=== PATIENT | male | born 2000 | race Caucasian/White ===

== ENCOUNTER 2024-04-03 16:18 | Emergency (ER) | payer BC, SELFPAY ==
[2024-04-03] MEDS ORDERED: ACETAMINOPHEN 500 MG TAB ONE (17:06)
[2024-04-03 17:40] LABS: Absolute Basophils 0.1 K/uL (0-0.5); Absolute Eosinophils 0.1 K/uL (0-0.5); Absolute Lymphocytes (CBC) 1.7 K/uL (0.7-4.9); Absolute Monocytes 0.6 K/uL (0.1-1.3); Absolute Neutrophil 5.3 K/uL (1.8-8.0); Basophils % 0.8 % (0-1.3); Eosinophils % 0.8 % (0-4.4); Hematocrit 44.3 % (39.6-49.0); Hemoglobin 14.8 g/dL (13.6-17.9); Lymphocytes % 22.3 % (15.3-44.8); MCH 28.4 pg (27.0-35.0); MCHC 33.4 g/dL (32.0-36.0); MCV 85.2 fL (80-100); MPV 8.8 fL (7.6-11.3); Monocytes % 7.5 % (3.3-12.3); Neutrophils % 68.6 % (41.7-73.7); Platelets 255 thou/uL (152-406); Red Cell Distribution Width 13.1 % (12.1-15.2)
[2024-04-03 18:03] LABS: ALT/SGPT 27 U/L (16-61); AST/SGOT 13 U/L (15-37); Albumin 3.5 g/dL (3.4-5.0); Albumin/Globulin Ratio 1.1 (1.1-1.8); Alkaline Phosphatase 90 U/L (45-117); Anion Gap 5.3 mEq/L (5.0-15.0); BUN Blood Urea Nitrogen 15 mg/dL (7-18); Bicarbonate 27 mEq/L (21-32); Bilirubin Direct < 0.2 mg/dL (0-0.2); Bilirubin Indirect, Calculated 0.3 mg/dL (0.2-0.8); Bilirubin Total 0.5 mg/dL (0.2-1.0); Globulin 3.2 g/dL (2.3-3.5); Glomerular Filtration Rate 70 ml/min (=/>90); Glucose Level 120 mg/dL (74-106); Magnesium 2.1 mg/dL (1.6-2.4); Potassium 3.3 mEq/L (3.5-5.1); Protein, Total 6.7 g/dL (6.4-8.2); Sodium Level 141 mEq/L (136-145); Troponin High Sensitivity 4.2 pg/mL (<58.9)
[2024-04-03] MEDS ORDERED: NA CHLORIDE 0.9% 1,000 ML ONE (18:22)
--- NOTE | 2024-04-03 18:33 | ER ---
Nurse's Notes [facility] Name: Dre Obregon Age: 23 yrs Sex: Male : 2000 Arrival Date: 04/03/2024 Time: 16:18 Bed 19 Private MD: Diagnosis: Syncope Presentation: 04/03 16:25 Chief complaint: EMS states: toned out for unconscious male. Reports dizziness and LIU me1 prior to losing consciousness. Potential "out" for up to 15 mins. On EMS arrival patient was alert and confused but is A\\T\\Ox4 at this time. c/o slight frontal headache at this time. Coronavirus screen: Vaccine status: Patient reports receiving the 2nd dose of the covid vaccine. Ebola Screen: No symptoms or risks identified at this time. Initial Sepsis Screen: Does the patient meet any 2 criteria? No. Patient's initial sepsis screen is negative. Does the patient have a suspected source of infection? No. Patient's initial sepsis screen is negative. Risk Assessment: Do you want to hurt yourself or someone else? Patient reports no desire to harm self or others. Onset of symptoms was April 03, 2024. 16:25 Method Of Arrival: EMS: [facility] me1 16:25 Acuity: SALTY 3 me1 Triage Assessment: 16:27 General: Appears comfortable, well groomed, well developed, well nourished, Behavior is me1 calm, cooperative, appropriate for age. Pain: Complains of pain in head Pain does not radiate. Pain currently is 2 out of 10 on a pain scale. Quality of pain is described as aching, Pain began gradually, Is continuous. EENT: No signs and/or symptoms were reported regarding the EENT system. Neuro: Level of Consciousness is awake, alert, obeys commands, Oriented to person, place, time, situation, Appropriate for age. Cardiovascular: Patient's skin is warm and dry. Respiratory: Airway is patent Trachea midline Respiratory effort is even, unlabored, Respiratory pattern is regular, symmetrical. GI: No signs and/or symptoms were reported involving the gastrointestinal system. : No signs and/or symptoms were reported regarding the genitourinary system. Derm: Skin is intact, is healthy with good turgor, Skin is pink, warm \\T\\ dry. Musculoskeletal: No signs and/or symptoms reported regarding the musculoskeletal system. Historical: - Allergies: 16:27 Azithromycin; me1 - PMHx: 16:27 hyponatremia; me1 - PSHx: 16:27 None; me1 - Immunization history:: Adult Immunizations up to date. - Infectious Disease History:: Denies. - Social history:: Smoking status: Reported history of juuling and/or vaping. Screenin:29 [facility] ED Fall Risk Assessment (Adult) History of falling in the last 3 months, me1 including since admission Yes- physiologic fall (2 pts) Confusion or Disorientation No (0 pts) Intoxicated or Sedated No (0 pts) Impaired Gait No (0 pts) Mobility Assist Device Used No (0 pt) Altered Elimination No (0 pt) Score/Fall Risk Level 0 - 2 = Low Risk Maintained a safe environment, Provided non-skid footwear, Hourly rounding (assess needs \\T\\ fall precautionary measures) done. Abuse screen: Denies threats or abuse. Nutritional screening: No deficits noted. Tuberculosis screening: No symptoms or risk factors identified. Assessment: 16:29 General: See triage assessment. . me1 19:02 Reassessment: Dispo pending. Finishing IV fluids. cp4 Vital Signs: 16:25 BP 128 / 72; Pulse 81; Resp 16; Temp 98; Pulse Ox 91% on R/A; Weight 92.08 kg; Height 6 me1 ft. 0 in. ; Pain 2/10; 16:30 BP 140 / 66; Pulse 83; Resp 16; Pulse Ox 94% on R/A; me1 17:30 BP 136 / 58; Pulse 76; Resp 17; Pulse Ox 98% on R/A; me1 18:45 BP 139 / 68; Pulse 65; Resp 16; Pulse Ox 100% ; me1 19:56 BP 137 / 66; Pulse 59; Resp 18; Temp 98; Pulse Ox 100% ; cp4 16:25 Body Mass Index 27.53 (92.08 kg, 182.88 cm) me1 16:25 Pain Scale: Adult or1 ED Course: 16:24 Patient arrived in ED. sb4 16:24 [facility] Fern[facility] sb4 16:24 Alexandre Santamaria MD is Attending Physician. sb4 16:25 Andree Flynn RN is Primary Nurse. me1 16:27 Triage completed. me1 16:27 Arm band placed on Patient placed in an exam room. me1 16:29 Patient has correct armband on for positive identification. Bed in low position. Call or1 light in reach. Side rails up X2. Provided Education on: POC. Verbalized understanding. . Client placed on continuous cardiac and pulse oximetry monitoring. NIBP monitoring applied. culinary art teacher on. Pulse ox on. NIBP on. 16:29 No provider procedures requiring assistance completed. me1 16:31 Maintain EMS IV. Dressing intact. Good blood return noted. Site clean \\T\\ dry. Gauge \\T\\ me 1 site: 20g LFA. Flushed with 10 mL NS. 17:02 Basic Metabolic Panel Sent. me1 17:02 CBC with Diff Sent. me1 17:02 Hepatic Function Sent. me1 17:02 Magnesium Sent. me1 17:02 Troponin High Sensitivity Sent. me1 17:02 Initial lab(s) drawn, by or, sent to lab. me1 17:52 EKG done, by ED staff, reviewed by Catina Fernandez PA-C. me1 19:56 intact, bleeding controlled, No redness/swelling at site. Pressure dressing applied. cp4 Administered Medications: 17:10 Drug: Acetaminophen PO 1000 mg PO once Route: PO; me1 17:52 Follow up: Response: No adverse reaction; Pain is decreased me1 18:25 Drug: NS 0.9% IV 1000 ml IV at 1 bolus Per protocol; 1000 mL bolus Route: IV; Rate: 1 me1 bolus; Site: left forearm; 19:54 Follow up: Response: No adverse reaction; IV Status: Completed infusion; IV Intake: cp4 1000ml Medication: 16:29 VIS not applicable for this client. me1 Intake: 19:54 IV: 1000ml; Total: 1000ml. cp4 Outcome: 18:33 Discharge ordered by MD. sb4 19:56 Discharged to home ambulatory, cp4 19:56 Condition: stable 19:56 Discharge instructions given to patient, Instructed on discharge instructions, follow up and referral plans. Demonstrated understanding of instructions, follow-up care, 19:57 Patient left the ED. cp4 Signatures: Catina Fernandez PA-C PA-C sb4 Andree Flynn, RN RN or1 Yanet Saunders cp4
--- NOTE | 2024-04-03 18:33 | EDPHYS ---
Physician Documentation [facility] Name: Dre Obregon Age: 23 yrs Sex: Male : 2000 Arrival Date: 04/03/2024 Time: 16:18 Bed 19 Private MD: ED Physician Alexandre Santamaria HPI: 04/03 16:57 This 23 yrs old Male presents to ER via EMS with complaints of syncope. sb4 17:25 patient states that he was working outside today when he started to feel lightheaded. sb4 he took a break inside, felt better, then went back outside. states that he called for help and then the next thing he knew he was being carried inside. he states he has had syncopal episodes in the past, does have a history of hyponatremia, cause unclear. currently, he only reports headache. denies any chest pain, shortness of breath, dizziness, fever, chills, nausea, vomiting. Historical: - Allergies: 16:27 Azithromycin; me1 - PMHx: 16:27 hyponatremia; me1 - PSHx: 16:27 None; me1 - Immunization history:: Adult Immunizations up to date. - Infectious Disease History:: Denies. - Social history:: Smoking status: Reported history of juuling and/or vaping. ROS: 17:25 Constitutional: Negative for fever, chills, and weight loss, sb4 17:25 Neuro: Positive for syncope, 17:25 All other systems are negative, Exam: 17:25 Constitutional: This is a well developed, well nourished patient who is awake, alert, sb4 and in no acute distress. Head/Face: Normocephalic, atraumatic. Eyes: Extra-ocular motions intact. Periorbital areas with no swelling, redness, or edema. ENT: Mucous membranes moist. Cardiovascular: Regular rate and rhythm with a normal S1 and S2. Respiratory: Lungs have equal breath sounds bilaterally, clear to auscultation and percussion. No rales, rhonchi or wheezes noted. No increased work of breathing, no retractions or nasal flaring. Abdomen/GI: Soft, non-tender, no distension. Skin: Warm, dry with normal turgor. Normal color with no rashes, no lesions, and no evidence of cellulitis. MS/ Extremity: Pulses equal, no cyanosis. Neurovascular intact. Full, normal range of motion. Neuro: Awake and alert, GCS 15, oriented to person, place, time, and situation. Motor strength 5/5 in all extremities. Sensory grossly intact. Vital Signs: 16:25 BP 128 / 72; Pulse 81; Resp 16; Temp 98; Pulse Ox 91% on R/A; Weight 92.08 kg; Height 6 me1 ft. 0 in. ; Pain 2/10; 16:30 BP 140 / 66; Pulse 83; Resp 16; Pulse Ox 94% on R/A; me1 17:30 BP 136 / 58; Pulse 76; Resp 17; Pulse Ox 98% on R/A; me1 18:45 BP 139 / 68; Pulse 65; Resp 16; Pulse Ox 100% ; me1 19:56 BP 137 / 66; Pulse 59; Resp 18; Temp 98; Pulse Ox 100% ; cp4 16:25 Body Mass Index 27.53 (92.08 kg, 182.88 cm) me1 16:25 Pain Scale: Adult me1 MDM: 16:29 Patient medically screened. sb4 18:32 Data reviewed: vital signs, nurses notes, EMS record, lab test result(s), EKG, and as a sb4 result, I will discharge patient. Counseling: I had a detailed discussion with the patient and/or guardian regarding the historical points, exam findings, and any diagnostic results supporting the discharge/admit diagnosis, lab results, the need for outpatient follow up, for definitive care, to return to the emergency department if symptoms worsen or persist or if there are any questions or concerns that arise at home. 04/03 16:48 Order name: Basic Metabolic Panel; Complete Time: 18:07 sb4 04/03 16:48 Order name: CBC with Diff; Complete Time: 17:46 sb4 04/03 16:48 Order name: Hepatic Function; Complete Time: 18:07 sb4 04/03 16:48 Order name: Magnesium; Complete Time: 18:07 sb4 04/03 16:48 Order name: Troponin High Sensitivity; Complete Time: 18:07 sb4 04/03 16:48 Order name: Cardiac monitoring; Complete Time: 17:52 sb4 04/03 16:48 Order name: EKG - Nurse/Tech; Complete Time: 17:52 sb4 04/03 16:48 Order name: IV Saline Lock; Complete Time: 17:02 sb4 04/03 16:48 Order name: Labs collected and sent; Complete Time: 17:02 sb4 04/03 16:48 Order name: O2 Per Protocol; Complete Time: 17:02 sb4 04/03 16:48 Order name: O2 Sat Monitoring; Complete Time: 17:02 sb4 EC:31 Rate is 66 beats/min. Rhythm is regular, Normal Sinus Rhythm. [place] interval is normal at sb4 168 msec. QRS interval is normal at 98 msec. QT interval is normal at 380 msec. No Q waves. T waves are Normal. No ST changes noted. Clinical impression: Normal ECG and No evidence of ischemia. Interpreted by me. Reviewed by me. Administered Medications: 17:10 Drug: Acetaminophen PO 1000 mg PO once Route: PO; me1 17:52 Follow up: Response: No adverse reaction; Pain is decreased me1 18:25 Drug: NS 0.9% IV 1000 ml IV at 1 bolus Per protocol; 1000 mL bolus Route: IV; Rate: 1 me1 bolus; Site: left forearm; 19:54 Follow up: Response: No adverse reaction; IV Status: Completed infusion; IV Intake: cp4 1000ml Disposition Summary: 04/03/24 18:33 Discharge Ordered Notes: Location: Home sb4 Problem: new sb4 Symptoms: have improved sb4 Condition: Stable sb4 Diagnosis - Syncope sb4 Followup: sb4 - With: Private Physician - When: 1 week - Reason: Recheck today's complaints, Re-evaluation by your physician Discharge Instructions: - Discharge Summary Sheet sb4 - Syncope, [id number] sb4 Forms: - Patient Portal Instructions sb4 - Leadership Thank You Letter sb4 - Work release form cp4 Signatures: Dispatcher [employer] Catina Mcnally PA-C PA-C sb4 Andree Flynn RN RN me1 Yanet Saunders cp4 Corrections: (The following items were deleted from the chart) 16:48 16:48 BASIC METABOLIC PANEL+C.LAB.BRZ ordered. EDMS EDMS 16:48 16:48 CBC+H.LAB.BRZ ordered. EDMS EDMS 16:48 16:48 HEPATIC FUNCTION+C.LAB.BRZ ordered. EDMS EDMS 16:48 16:48 MAGNESIUM+C.LAB.BRZ ordered. EDMS EDMS 16:48 16:48 Troponin High Sensitivity+C.LAB.BRZ ordered. EDMS EDMS
[2024-04-03 20:14] VITALS: TEMP 98
[2024-04-03 20:19] VITALS: O2SAT 100
[2024-04-03 20:20] VITALS: BP 137/66
--- NOTE | 2024-04-05 13:50 | EKG ---
Test Date: 2024-04-03 Test Time: 17:29:10 Match Marker: MEASUREMENT RESULTS: Intervals: Rate: 66 DE: 168 QRSD: 98 QT: 380 QTc: 398 [place]: P: 69 DE: 168 QRS: 100 T: 53 INTERPRETIVE STATEMENTS: Normal sinus rhythm Normal ECG No previous ECG available for comparison Electronically Signed On 04-05-24 13:45:31 CDT by Eric Luevano
== END 2024-04-03 19:57 | disposition home or self-care (01) ==
LOC: ER 16:18
DX: R55 Syncope and collapse (principal)
CPT/HCPCS: 36415; 80048; 80076; 83735; 84484; 85025; 93005; 96360; 99285; J7030

== ENCOUNTER 2024-05-27 06:38 | Emergency (ER) | payer BC, SELFPAY ==
--- NOTE | 2024-05-27 07:38 | EDPHYS ---
Physician Documentation [facility] Name: Dre Obregon Age: 24 yrs Sex: Male : 2000 Arrival Date: 05/27/2024 Time: 06:38 Bed 15 Private MD: ED Physician Kenji Vitale HPI: 05/27 07:35 This 24 yrs old Male presents to ER via Ambulatory with complaints of Ear Pain, Nasal rn Drainage. 07:35 The patient presents with pain. The complaints affect the right ear. Onset: The rn symptoms/episode began/occurred 3 day(s) ago. Modifying factors: The symptoms are alleviated by nothing, the symptoms are aggravated by nothing. Associated signs and symptoms: The patient has no apparent associated signs or symptoms. Severity of symptoms: At their worst the symptoms were mild in the emergency department the symptoms are unchanged. The patient has experienced similar episodes in the past. Patient reports right ear pain for 3 to 4 days. No fever. No drainage. No trauma. Reports recurrent infections about twice a year similar to this. No shortness of breath.. Historical: - Allergies: 07:02 Azithromycin; ll1 - Home Meds: 07:02 Dicyclomine Oral [Active]; ll1 - PMHx: 07:02 hyponatremia; GI issues (hyponatremia); ll1 - PSHx: 07:02 None; ll1 - Immunization history:: Adult Immunizations up to date. - Infectious Disease History:: Denies. - Social history:: Smoking status: Reported history of juuling and/or vaping. - Family history:: not pertinent. - Hospitalizations: : No recent hospitalization is reported. ROS: 07:35 Constitutional: Negative for fever, chills, and weight loss, ENT: Positive for ear pain rn Exam: 07:35 Constitutional: This is a well developed, well nourished patient who is awake, alert, rn and in no acute distress. ENT: Right TM erythema, no perforation or foreign body. Mild pharyngeal erythema without exudate or masses. Uvula midline. No hypertrophy. No stridor. Cardiovascular: Regular rate and rhythm. No pulse deficits. Vital Signs: 07:04 BP 139 / 82; Pulse 58; Resp 16; Temp 97.7; Pulse Ox 99% ; Weight 93.44 kg; Height 6 ft. ll1 0 in. ; Pain 6/10; 07:42 BP 132 / 83; Pulse 79; Resp 16; Pulse Ox 99% on R/A; Pain 4/10; ll1 07:04 Body Mass Index 27.94 (93.44 kg, 182.88 cm) ll1 07:04 Pain Scale: Adult ll1 07:42 Pain Scale: Adult ll1 MDM: 07:02 Patient medically screened. rn 07:35 Differential diagnosis: otitis media, otitis externa, acute otalgia, serotympanum. Data rn reviewed: vital signs, nurses notes, and as a result, I will discharge patient. Counseling: I had a detailed discussion with the patient and/or guardian regarding the historical points, exam findings, and any diagnostic results supporting the discharge/admit diagnosis, the need for outpatient follow up, to return to the emergency department if symptoms worsen or persist or if there are any questions or concerns that arise at home. Special discussion: I discussed with the patient/guardian in detail that at this point there is no indication for admission to the hospital. It is understood, however, that if the symptoms persist or worsen the patient needs to return immediately for re-evaluation. Administered Medications: No medications were administered Disposition Summary: 05/27/24 07:37 Discharge Ordered Notes: Location: Home rn Problem: new rn Symptoms: are unchanged rn Condition: Stable rn Diagnosis - Otitis media, unspecified, right ear rn Followup: rn - With: Private Physician - When: As needed - Reason: Recheck today's complaints, Re-evaluation by your physician Discharge Instructions: - Otitis Media, Adult rn - Discharge Summary Sheet 1 Forms: - Medication Reconciliation Form rn - Antibiotic international sales manager - Prescription Opioid Use rn - Patient Portal Instructions rn - Leadership Thank You Letter rn - Work release form ll1 Prescriptions: - Augmentin 875-125 mg Oral Tablet - take 1 tablet ORAL route every 12 hours for 10 days; 20 tablet; Refills: 0, rn Product Selection Permitted Signatures: Kenji Vitale MD MD rn Lewis, Lynsay, RN RN [facility]
--- NOTE | 2024-05-27 07:38 | ER ---
Nurse's Notes [facility] Name: Dre Obregon Age: 24 yrs Sex: Male : 2000 Arrival Date: 05/27/2024 Time: 06:38 Bed 15 Private MD: Diagnosis: Otitis media, unspecified, right ear Presentation: 05/27 07:04 Chief complaint: Patient states: R ear pain and throat pain for 3-4 days. No fever. ll1 Coronavirus screen: Client denies travel out of the [place] in the last 14 days. congestion, headache, Client presents with at least one sign or symptom that may indicate coronavirus-19. Standard/surgical mask placed on the client. Ebola Screen: Patient denies travel to an Ebola-affected area in the 21 days before illness onset. Initial Sepsis Screen: Does the patient meet any 2 criteria? No. Patient's initial sepsis screen is negative. Does the patient have a suspected source of infection? No. Patient's initial sepsis screen is negative. Risk Assessment: Do you want to hurt yourself or someone else? Patient reports no desire to harm self or others. Onset of symptoms was May 24, 2024. 07:04 Method Of Arrival: Ambulatory ll1 07:04 Acuity: SALTY 4 ll1 Triage Assessment: 07:04 General: Appears in no apparent distress. Behavior is calm, cooperative, appropriate ll1 for age. General: Denies fever. Pain: Complains of pain in right ear Quality of pain is described as aching. EENT: Reports nasal congestion pain in right ear. Neuro: No deficits noted. Cardiovascular: No deficits noted. Respiratory: No deficits noted. Historical: - Allergies: 07:02 Azithromycin; ll1 - Home Meds: 07:02 Dicyclomine Oral [Active]; ll1 - PMHx: 07:02 hyponatremia; GI issues (hyponatremia); ll1 - PSHx: 07:02 None; ll1 - Immunization history:: Adult Immunizations up to date. - Infectious Disease History:: Denies. - Social history:: Smoking status: Reported history of juuling and/or vaping. - Family history:: not pertinent. - Hospitalizations: : No recent hospitalization is reported. Screenin:15 [facility] ED Fall Risk Assessment (Adult) History of falling in the last 3 months, ll1 including since admission No falls in past 3 months (0 pts) Confusion or Disorientation No (0 pts) Intoxicated or Sedated No (0 pts) Impaired Gait No (0 pts) Mobility Assist Device Used No (0 pt) Altered Elimination No (0 pt) Score/Fall Risk Level 0 - 2 = Low Risk Maintained a safe environment, Hourly rounding (assess needs \T\ fall precautionary measures) done. Abuse screen: Denies threats or abuse. Nutritional screening: No deficits noted. Tuberculosis screening: No symptoms or risk factors identified. Vital Signs: 07:04 BP 139 / 82; Pulse 58; Resp 16; Temp 97.7; Pulse Ox 99% ; Weight 93.44 kg; Height 6 ft. ll1 0 in. ; Pain 6/10; 07:42 BP 132 / 83; Pulse 79; Resp 16; Pulse Ox 99% on R/A; Pain 4/10; ll1 07:04 Body Mass Index 27.94 (93.44 kg, 182.88 cm) ll1 07:04 Pain Scale: Adult ll1 07:42 Pain Scale: Adult ll1 ED Course: 06:41 Patient arrived in ED. gm2 07:00 Arm band placed on Patient placed in an exam room, on a stretcher. ll1 07:02 Kenji Vitale MD is Attending Physician. rn 07:06 Triage completed. ll1 07:15 [place], [place] is Primary Nurse. ll1 07:15 Patient has correct armband on for positive identification. Bed in low position. ll1 Cardiac monitoring not applicable on this patient. 07:43 Provided Education on: finish prescribed antibiotics. 1 07:43 No provider procedures requiring assistance completed. Patient did not have IV access ll1 during this emergency room visit. Administered Medications: No medications were administered Medication: 07:15 VIS not applicable for this client. ll1 Outcome: 07:37 Discharge ordered by . rn 07:43 Discharged to home ambulatory, 1 07:43 Condition: stable 07:43 Discharge instructions given to patient, Instructed on discharge instructions, follow up and referral plans. medication usage, Demonstrated understanding of instructions, follow-up care, medications, Prescriptions given X 1, 07:43 Patient left the ED. 1 Signatures: Kenji Vitale MD MD rn Lewis, Lynsay, RN RN 1 Glenna Harris 2
[2024-05-27 20:57] VITALS: TEMP 97.7; O2SAT 99
[2024-05-27 20:59] VITALS: BP 132/83
== END 2024-05-27 07:43 | disposition home or self-care (01) ==
LOC: ER 06:38
DX: H66.91 Otitis media, unspecified, right ear (principal)
CPT/HCPCS: 99283

== ENCOUNTER 2024-08-20 20:00 | Emergency (ER) | payer SELFPAY ==
--- NOTE | 2024-08-20 20:56 | EDPHYS ---
[facility] Name: Dre Obregon Age: 24 yrs Sex: Male : 2000 Arrival Date: 08/20/2024 Time: 20:00 Bed IW2 Private MD: ED Physician Madeleine Adair HPI: 08/20 20:51 This 24 yrs old Male presents to ER via Ambulatory with complaints of Body aches, sd2 Diarrhea. 20:51 24 yo M Presents with CC of body aches, nausea and diarrhea for the past couple of sd2 days. Reports sick contacts at work. Denies fever or other symptoms. Has been taking Tylenol and ibuprofen with relief. Reports needing note for work since he missed today.. Historical: - Allergies: 20:28 Azithromycin; cm10 - PMHx: 20:28 GI issues (hyponatremia); hyponatremia; cm10 - Immunization history:: Adult Immunizations up to date. - Infectious Disease History:: Denies. - Social history:: Smoking status: Reported history of juuling and/or vaping. ROS: 20:51 Constitutional: Negative for fever, chills, and weight loss, Eyes: Negative for injury, sd2 pain, redness, and discharge, Cardiovascular: Negative for chest pain, palpitations, and edema, Respiratory: Negative for shortness of breath, cough, wheezing. 20:51 MS/Extremity: Negative for injury and deformity, Skin: Negative for injury, rash, and discoloration, Neuro: Negative for headache, numbness and tingling. 20:51 Abdomen/GI: Positive for nausea, diarrhea, Negative for abdominal pain, vomiting, Exam: 20:51 Constitutional: This is a well developed, well nourished patient who is awake, alert, sd2 and in no acute distress. Head/Face: Normocephalic, atraumatic. Eyes: EOMI, normal conjunctiva bilaterally Chest/axilla: Normal chest wall appearance and motion. Nontender with no deformity. Cardiovascular: Regular rate and rhythm with a normal S1 and S2. No gallops, murmurs, or rubs. 2+ distal pulses. Respiratory: Lungs have equal breath sounds bilaterally, clear to auscultation and percussion. No rales, rhonchi or wheezes noted. No increased work of breathing, no retractions or nasal flaring. Abdomen/GI: Soft, non-tender, with normal bowel sounds. No guarding or rebound. No evidence of tenderness throughout. Skin: Warm, dry with normal turgor. Normal color with no rashes, no lesions, and no evidence of cellulitis. MS/ Extremity: Pulses equal, no cyanosis. Neurovascular intact. Full, normal range of motion. Psych: Awake, alert, with orientation to person, place and time. Behavior, mood, and affect are within normal limits. Vital Signs: 20:27 BP 142 / 80; Pulse 74; Resp 16; Temp 98.4(TE); Pulse Ox 99% on R/A; Weight 90.72 kg; cm10 Height 6 ft. 0 in. ; Pain 4/10; 21:01 BP 138 / 78; Pulse 76; Resp 16; Temp 98.4; Pulse Ox 100% ; me1 20:27 Body Mass Index 27.12 (90.72 kg, 182.88 cm) cm10 20:27 Pain Scale: Adult cm10 MDM: 20:51 Medical Screening Exam initiated sd2 20:51 Differential diagnosis: flu, viral syndrome, GE, dehydration, electrolyte abnormality, sd2 COVID among others. Data reviewed: vital signs, nurses notes, lab test result(s). Counseling: I had a detailed discussion with the patient and/or guardian regarding the historical points, exam findings, and any diagnostic results supporting the discharge/admit diagnosis, the need for outpatient follow up, to return to the emergency department if symptoms worsen or persist or if there are any questions or concerns that arise at home. ED course: Pt reports symptoms well controlled at home. He is well appearing with stable VS. He is comfortable with plan for dc without waiting for results as after discussion about Tamiflu he would not want to proceed with it either. Will call if results return positive. He verbalizes understanding of dc plan and strict return precautions. . 08/20 20:29 Order name: SARS RAPID cm10 08/20 20:29 Order name: Flu cm10 Administered Medications: No medications were administered Disposition Summary: 08/20/24 20:55 Discharge Ordered Problem: new sd2 Symptoms: are unchanged sd2 Condition: Stable sd2 Diagnosis - Flu-like symptoms sd2 - Nausea sd2 - Diarrhea sd2 - Body aches sd2 Followup: sd2 - With: Private Physician - When: 2 - 3 days - Reason: Recheck today's complaints, Continuance of care, Re-evaluation by your physician Discharge Instructions: - Discharge Summary Sheet sd2 - Form - Excuse from Work, School, or Physical Activity sd2 - Viral Illness, Adult sd2 Forms: - Medication Reconciliation Form sd2 - Antibiotic Education sd2 - Prescription Opioid Use sd2 - Patient Portal Instructions sd2 - Leadership Thank You Letter sd2 Signatures: Dispatcher [employer] Madeleine Saab MD MD sd2 Ashtyn Sheth RN RN cm10
--- NOTE | 2024-08-20 20:56 | ER ---
Nurse's Notes [facility] Name: Dre Obregon Age: 24 yrs Sex: Male : 2000 Arrival Date: 08/20/2024 Time: 20:00 Bed IW2 Private MD: Diagnosis: Flu-like symptoms;Nausea;Diarrhea;Body aches Presentation: 08/20 20:27 Chief complaint: Patient states: DIARRHEA AND BODY ACHES ONSET YESTERDAY. Coronavirus cm10 screen: Client denies travel out of the [place] in the last 14 days. Ebola Screen: Patient denies travel to an Ebola-affected area in the 21 days before illness onset. No symptoms or risks identified at this time. Initial Sepsis Screen: Does the patient meet any 2 criteria? No. Patient's initial sepsis screen is negative. Does the patient have a suspected source of infection? No. Patient's initial sepsis screen is negative. Risk Assessment: Do you want to hurt yourself or someone else? Patient reports no desire to harm self or others. Onset of symptoms was August 19, 2024. 20:27 Method Of Arrival: Ambulatory cm10 20:27 Acuity: SALTY 4 cm10 Triage Assessment: 20:28 General: Appears in no apparent distress. uncomfortable, Behavior is calm, cooperative. cm10 Neuro: No deficits noted. Level of Consciousness is awake, alert, obeys commands, Oriented to person, place, time, situation, Appropriate for age. Historical: - Allergies: 20:28 Azithromycin; cm10 - PMHx: 20:28 GI issues (hyponatremia); hyponatremia; cm10 - Immunization history:: Adult Immunizations up to date. - Infectious Disease History:: Denies. - Social history:: Smoking status: Reported history of juuling and/or vaping. Screenin:52 [facility] ED Fall Risk Assessment (Adult) History of falling in the last 3 months, me1 including since admission No falls in past 3 months (0 pts) Confusion or Disorientation No (0 pts) Intoxicated or Sedated No (0 pts) Impaired Gait No (0 pts) Mobility Assist Device Used No (0 pt) Altered Elimination No (0 pt) Score/Fall Risk Level 0 - 2 = Low Risk Maintained a safe environment, Provided non-skid footwear, Hourly rounding (assess needs \T\ fall precautionary measures) done. Abuse screen: Denies threats or abuse. Nutritional screening: No deficits noted. Tuberculosis screening: No symptoms or risk factors identified. Assessment: 20:52 General: Appears ill, well groomed, well developed, well nourished, Behavior is calm, me1 cooperative, appropriate for age, Reports body aches and diarrhea that started yesterday. Pain: Complains of pain in generalized Pain does not radiate. Pain currently is 4 out of 10 on a pain scale. Quality of pain is described as aching, Pain began 1 day ago. Is continuous. Neuro: Level of Consciousness is awake, alert, obeys commands, Oriented to person, place, time, situation, Appropriate for age. Cardiovascular: Patient's skin is warm and dry. Respiratory: Airway is patent Trachea midline Respiratory effort is even, unlabored, Respiratory pattern is regular, symmetrical. GI: Abdomen is round non-distended, Reports diarrhea, since yesterday. : No signs and/or symptoms were reported regarding the genitourinary system. EENT: No signs and/or symptoms were reported regarding the EENT system. Derm: Skin is intact, is healthy with good turgor, Skin is pink, warm \T\ dry. Musculoskeletal: No signs and/or symptoms reported regarding the musculoskeletal system. Vital Signs: 20:27 BP 142 / 80; Pulse 74; Resp 16; Temp 98.4(TE); Pulse Ox 99% on R/A; Weight 90.72 kg; cm10 Height 6 ft. 0 in. ; Pain 4/10; 21:01 BP 138 / 78; Pulse 76; Resp 16; Temp 98.4; Pulse Ox 100% ; me1 20:27 Body Mass Index 27.12 (90.72 kg, 182.88 cm) cm10 20:27 Pain Scale: Adult cm10 ED Course: 20:02 Patient arrived in ED. mr 20:28 Triage completed. cm10 20:28 Arm band placed on left wrist. Patient placed in waiting room. cm10 20:29 Madeleine Adair MD is Attending Physician. sd2 20:44 COVID swab sent to lab. Flu and/or RSV swab sent to lab. lg3 20:52 Patient has correct armband on for positive identification. Call light in reach. me1 Provided Education on: POC. Verbalized understanding.. 20:52 No provider procedures requiring assistance completed. Patient did not have IV access me1 during this emergency room visit. Administered Medications: No medications were administered Medication: 20:52 VIS not applicable for this client. me1 Outcome: 20:55 Discharge ordered by . [email or web address] 21:01 Discharged to home ambulatory, me1 21:01 Condition: stable 21:01 Discharge instructions given to patient, Instructed on discharge instructions, follow up and referral plans. Demonstrated understanding of instructions, follow-up care, 21:02 Patient left the ED. me1 Signatures: Lisa Larsen, Reg Reg mr Darling Robles, RN RN lg3 Madeleine Adair MD MD sd2 Ashtyn Sheth, RN RN cm10 Andree Flynn RN RN me1
[2024-08-20 21:04] LABS: SARS-CoV-2 Antigen CONTROL BLUE LINE VIS/BG OK; SARS-CoV-2 Antigen Rapid Res Negative (Negative)
[2024-08-20 21:14] VITALS: TEMP 98.4
[2024-08-20 21:15] VITALS: BP 138/78; O2SAT 100
== END 2024-08-20 21:02 | disposition home or self-care (01) ==
LOC: ER 20:00
DX: J11.1 Influenza due to unidentified influenza virus with other respiratory manifestations (principal); R19.7 Diarrhea, unspecified; R52 Pain, unspecified; Z11.52 Encounter for screening for COVID-19
CPT/HCPCS: 36415; 87804; 87811; 99283

== ENCOUNTER 2024-09-08 10:24 | Emergency (ER) | payer SELFPAY ==
[2024-09-08 11:40] LABS: SARS-CoV-2 Antigen CONTROL BLUE LINE VIS/BG OK; SARS-CoV-2 Antigen Rapid Res Negative (Negative)
--- NOTE | 2024-09-08 11:48 | EDPHYS ---
Physician Documentation [facility] Name: Dre Obregon Age: 24 yrs Sex: Male : 2000 Arrival Date: 09/08/2024 Time: 10:24 Bed 12 Private MD: ED Physician Alexandre Santamaria HPI: 09/08 11:43 This 24 yrs old Male presents to ER via Ambulatory with complaints of Flu imani Symptoms. 11:43 The patient or guardian reports cough, flu symptoms, arthralgias, low-grade fever, imani myalgias. Modifying factors: The symptoms are alleviated by remaining still, rest, the symptoms are aggravated by nothing. fever , cough , body aches , vapes. Associated signs and symptoms: Pertinent positives: fever, rhinorrhea, sore throat. The patient reports fever, that was measured at 100 degrees Fahrenheit. Onset: The symptoms/episode began/occurred 3 day(s) ago. Severity of symptoms: At their worst the symptoms were mild in the emergency department the symptoms are unchanged. Associated signs and symptoms: Pertinent positives: arthralgias, chills, cough, with yellow sputum. The patient has experienced similar episodes in the past, multiple times. Historical: - Allergies: 10:35 Azithromycin; aa5 - PMHx: 10:35 GI issues (hyponatremia); hyponatremia; aa5 - Immunization history:: Adult Immunizations up to date. - Infectious Disease History:: Denies. - Social history:: Smoking status: Reported history of juuling and/or vaping. - Family history:: not pertinent. ROS: 11:43 Constitutional: Negative for fever, chills, and weight loss, Eyes: Negative for injury, imani pain, redness, and discharge, ENT: Negative for injury, pain, and discharge, Neck: Negative for injury, pain, and swelling, Cardiovascular: Negative for chest pain, palpitations, and edema, Abdomen/GI: Negative for abdominal pain, nausea, vomiting, diarrhea, and constipation, Back: Negative for injury and pain, : Negative for injury, bleeding, discharge, and swelling, MS/Extremity: Negative for injury and deformity, Skin: Negative for injury, rash, and discoloration, Neuro: Negative for headache, weakness, numbness, tingling, and seizure, Psych: Negative for depression, anxiety, suicide ideation, homicidal ideation, and hallucinations, Allergy/Immunology: Negative for hives, rash, and allergies, Endocrine: Negative for neck swelling, polydipsia, polyuria, polyphagia, and marked weight changes, Hematologic/Lymphatic: Negative for swollen nodes, abnormal bleeding, and unusual bruising, 11:43 Respiratory: Positive for cough, "sounds productive", wheezing, expiratory, Exam: 11:43 Constitutional: This is a well developed, well nourished patient who is awake, alert, imani and in no acute distress. Head/Face: Normocephalic, atraumatic. Eyes: Pupils equal round and reactive to light, extra-ocular motions intact. Lids and lashes normal. Conjunctiva and sclera are non-icteric and not injected. Cornea within normal limits. Periorbital areas with no swelling, redness, or edema. ENT: Nares patent. No nasal discharge, no septal abnormalities noted. Tympanic membranes are normal and external auditory canals are clear. Oropharynx with no redness, swelling, or masses, exudates, or evidence of obstruction, uvula midline. Mucous membranes moist. Neck: Trachea midline, no thyromegaly or masses palpated, and no cervical lymphadenopathy. Supple, full range of motion without nuchal rigidity, or vertebral point tenderness. No Meningismus. Chest/axilla: Normal chest wall appearance and motion. Nontender with no deformity. No lesions are appreciated. Cardiovascular: Regular rate and rhythm with a normal S1 and S2. No gallops, murmurs, or rubs. Normal PMI, no JVD. No pulse deficits. Abdomen/GI: Soft, non-tender, with normal bowel sounds. No distension or tympany. No guarding or rebound. No evidence of tenderness throughout. Back: No spinal tenderness. No costovertebral tenderness. Full range of motion. Skin: Warm, dry with normal turgor. Normal color with no rashes, no lesions, and no evidence of cellulitis. MS/ Extremity: Pulses equal, no cyanosis. Neurovascular intact. Full, normal range of motion., bilateral aka Neuro: Awake and alert, GCS 15, oriented to person, place, time, and situation. Cranial nerves II-XII grossly intact. Motor strength 5/5 in all extremities. Sensory grossly intact. Cerebellar exam normal. Normal gait. Psych: Awake, alert, with orientation to person, place and time. Behavior, mood, and affect are within normal limits. 11:43 Respiratory: the patient does not display signs of respiratory distress, Respirations: labored breathing, is not present, Breath sounds: bronchial sounds, that are mild, decreased breath sounds, that are mild, rhonchi, that are mild, are scattered, stridor, is not appreciated, + upper airway congestion. wheezing: expiratory is scattered, Vital Signs: 10:35 BP 151 / 75; Pulse 96; Resp 18 S; Temp 98.3(O); Pulse Ox 100% on R/A; Height 6 ft. 0 aa5 in. (R); 10:41 Weight 88.45 kg (M); aa5 MDM: 10:29 Medical Screening Exam initiated imani 10:33 Medical Screening Exam initiated [facility] 11:46 Differential diagnosis: obstructed airway, tracheal injury, bronchitis, flu, URI, viral imani Infection, bacterial infection, URI, bronchitis, pneumonia UTI, gastroenteritis, meningitis. Antibiotic administration: The patient is discharged and will get outpatient antibiotics, Amoxicillin. Differential Diagnosis sepsis, flu. Data reviewed: vital signs, nurses notes, lab test result(s), EKG, radiologic studies, plain films. Consideration of Admission/Observation Escalation of care including admission/observation considered. I considered the following discharge prescriptions or medication management in the emergency department Medications were administered in the Emergency Department. See MAR. Historians other than the Patient: pt well informed. Care significantly affected by the following chronic conditions: tobacco, hyponatremia. Counseling: I had a detailed discussion with the patient and/or guardian regarding the historical points, exam findings, and any diagnostic results supporting the discharge/admit diagnosis, lab results, radiology results, the need for outpatient follow up, for definitive care, a family practitioner. 09/08 10:30 Order name: Flu imani 09/08 10:30 Order name: SARS RAPID imani 09/08 10:30 Order name: Strep imani Administered Medications: 10:41 Not Given (Patient Refused): [id number] mg PO once aa5 12:10 Drug: Amoxicillin-Clavulanate PO 875 mg PO once Route: PO; hb 12:10 Follow up: Response: Medication administered at discharge. hb Disposition Summary: 09/08/24 11:48 Discharge Ordered Notes: Location: Home imani Problem: new imani Symptoms: have improved imani Condition: Stable imnai Diagnosis - Tobacco abuse counseling imani - Tobacco use imani - Acute upper respiratory infection, unspecified imani - Cough imani Followup: imani - With: Private Physician - When: 2 - 3 days - Reason: Recheck today's complaints, Continuance of care, Re-evaluation by your physician Discharge Instructions: - Discharge Summary Sheet imani - Self-Destructive Behavior imani - Steps to Quit Smoking imani - Health Risks of Smoking imani - Upper Respiratory Infection, Adult imani - Cool Mist Vaporizer imani - Upper Respiratory Infection, Adult, [id number] imani - Steps to Quit Smoking, [id number] imani - Cough, Adult imani Forms: - Medication Reconciliation Form imani - Antibiotic Education imani - Prescription Opioid Use imani - Patient Portal Instructions [facility] - Leadership Thank You Letter [facility] - Work release form Prescriptions: - albuterol sulfate 90 mcg/actuation Inhalation HFA Aerosol Inhaler - inhale 2 puff INHALATION route every 4 to 6 hours as needed for shortness of imani breath or wheezing; 1 unit; Refills: 0, Product Selection Permitted - Augmentin 875-125 mg Oral tablet - take 1 tablet ORAL route every 12 hours for 7 days; 14 tablet; Refills: 0, [facility] Product Selection Permitted - Tessalon Perles 100 mg Oral capsule - take 2 capsule ORAL route every 8 hours As needed; 30 capsule; Refills: 0, [facility] Product Selection Permitted - Medrol (Rodolfo) 4 mg Oral Tablets, Dose Pack - take 1 tablet ORAL route as directed - follow package instructions; 1 packet; [facility] Refills: 0, Product Selection Permitted Signatures: Dispatcher [employer] EDMS Alexandre Santamaria MD MD cha Calderon, Audri, RN RN aa5 Sarahi Hinkle RN RN Corrections: (The following items were deleted from the chart) 10:30 10:30 Influenza Screen (A \\T\\ B)+BA.LAB.BRZ ordered. EDMS EDMS 10:30 10:30 SARS-COV-2 Antigen Rapid+I.LAB.BRZ ordered. EDMS EDMS 10:30 10:30 Group A Streptococcus Rapid Sc+BA.LAB.BRZ ordered. EDMS EDMS
--- NOTE | 2024-09-08 11:48 | ER ---
Nurse's Notes [facility] Name: Dre Obregon Age: 24 yrs Sex: Male : 2000 Arrival Date: 09/08/2024 Time: 10:24 Bed 12 Private MD: Diagnosis: Tobacco abuse counseling;Tobacco use;Acute upper respiratory infection, unspecified;Cough Presentation: 09/08 10:35 Chief complaint: Patient states: cough, congestion, runny nose, mild sore throat, and aa5 low grade fever 100.2*F since yesterday. Coronavirus screen: congestion, cough unrelated to allergies, runny nose. Ebola Screen: Patient denies travel to an Ebola-affected area in the 21 days before illness onset. Initial Sepsis Screen: Does the patient meet any 2 criteria? HR > 90 bpm. Does the patient have a suspected source of infection? No. Patient's initial sepsis screen is negative. Risk Assessment: Do you want to hurt yourself or someone else? Patient reports no desire to harm self or others. Onset of symptoms was August 2024. 10:35 Acuity: SALTY 4 aa5 10:35 Method Of Arrival: Ambulatory aa5 Historical: - Allergies: 10:35 Azithromycin; aa5 - PMHx: 10:35 GI issues (hyponatremia); hyponatremia; aa5 - Immunization history:: Adult Immunizations up to date. - Infectious Disease History:: Denies. - Social history:: Smoking status: Reported history of juuling and/or vaping. - Family history:: not pertinent. Screenin:41 [facility] ED Fall Risk Assessment (Adult) History of falling in the last 3 months, aa5 including since admission No falls in past 3 months (0 pts) Confusion or Disorientation No (0 pts) Intoxicated or Sedated No (0 pts) Impaired Gait No (0 pts) Mobility Assist Device Used No (0 pt) Altered Elimination No (0 pt) Score/Fall Risk Level 0 - 2 = Low Risk Oriented to surroundings, Maintained a safe environment, Educated pt \T\ family on fall prevention, incl call for assistance when getting out of bed. Abuse screen: Denies threats or abuse. Nutritional screening: No deficits noted. Tuberculosis screening: No symptoms or risk factors identified. Assessment: 10:35 General: Appears uncomfortable, Behavior is calm, cooperative. Pain: Denies pain. aa5 Neuro: Level of Consciousness is awake, alert, obeys commands, Oriented to person, place, time, situation. Cardiovascular: Patient's skin is warm and dry. Respiratory: Reports cough Airway is patent Respiratory effort is even, unlabored, Respiratory pattern is regular, symmetrical. GI: No signs and/or symptoms were reported involving the gastrointestinal system. : No signs and/or symptoms were reported regarding the genitourinary system. EENT: Reports nasal congestion nasal discharge mild sore throat . Derm: Skin is pink, warm \T\ dry. Musculoskeletal: Range of motion: intact in all extremities. Vital Signs: 10:35 BP 151 / 75; Pulse 96; Resp 18 S; Temp 98.3(O); Pulse Ox 100% on R/A; Height 6 ft. 0 aa5 in. (R); 10:41 Weight 88.45 kg (M); aa5 ED Course: 10:27 Patient arrived in ED. im 10:29 Alexandre Santamaria MD is Attending Physician. [facility] 10:35 Arm band placed on. aa5 10:35 Patient has correct armband on for positive identification. Bed in low position. Call aa5 light in reach. Side rails up X 1. 10:36 Triage completed. aa5 10:36 Mary He, RN is Primary Nurse. aa5 10:38 COVID swab sent to lab. Flu and/or RSV swab sent to lab. Strep swab sent to lab. aa5 10:42 No provider procedures requiring assistance completed. Patient did not have IV access aa5 during this emergency room visit. 12:12 Provided Education on: medications, follow up. hb Administered Medications: 10:41 Not Given (Patient Refused): [id number] mg PO once aa5 12:10 Drug: Amoxicillin-Clavulanate PO 875 mg PO once Route: PO; hb 12:10 Follow up: Response: Medication administered at discharge. Medication: 10:41 VIS not applicable for this client. aa5 Outcome: 11:48 Discharge ordered by . imani 12:12 Discharged to home ambulatory, hb 12:12 Condition: stable 12:12 Discharge instructions given to patient, Instructed on discharge instructions, follow up and referral plans. medication usage, Demonstrated understanding of instructions, follow-up care, medications, Prescriptions given X 4, 12:13 Patient left the ED. hb Signatures: Alexandre Santamaria MD MD cha Calderon, Audri, RN RN aa5 Sarahi Hinkle RN RN hb Elham John
[2024-09-08] MEDS ORDERED: AMOX/K CLAV 875 MG TAB ONE (12:07)
[2024-09-10 02:12] VITALS: BP 151/75; TEMP 98.3; O2SAT 100
== END 2024-09-08 12:13 | disposition home or self-care (01) ==
LOC: ER 10:24
DX: J06.9 Acute upper respiratory infection, unspecified (principal); R05.9 Cough, unspecified; F17.290 Nicotine dependence, other tobacco product, uncomplicated; E87.1 Hypo-osmolality and hyponatremia; Z71.6 Tobacco abuse counseling; Z88.3 Allergy status to other anti-infective agents; Z11.52 Encounter for screening for COVID-19
CPT/HCPCS: 36415; 87070; 87081; 87804; 87811; 99283

== ENCOUNTER 2025-04-05 11:15 | Emergency (ER) | payer SELFPAY ==
--- OUTSIDE RECORDS SUMMARY | 2025-04-05 11:17 | XMS REPORT | Continuity of Care Document ---
Author Name Unknown Address [address] [facility] [address] [id number] [facility] Address [address] [facility] [address] [place] [address] Care Team Providers Care Senior Statistical Programmer Name Role Phone Unavailable Unavailable Unavailable Encounters Start Date/Time End Date/Time Encounter Type Admission Type Attending Clinicians Care Facility Care Department Encounter ID Source 2024-12-04 14:01:23 2024-12-04 14:01:23 Outpatient [facility] [id number] Trace Rodriguez 2024-11-03 08:16:07 2024-11-03 08:16:07 Outpatient [facility] [id number] Trace Rodriguez
[2025-04-05] MEDS ORDERED: LIDOCAINE 1% 20 ML MDV ONE (13:16)
[2025-04-05] MEDS ORDERED: TDAP (DIPHTH,PERTUSS(ACELL),TET VAC) 0.5 ML VIAL IMVAC ONE (13:16)
--- NOTE | 2025-04-05 14:43 | ER ---
Nurse's Notes [facility] Name: Dre Obregon Age: 24 yrs Sex: Male : 2000 Arrival Date: 04/05/2025 Time: 11:15 Bed 10 Private MD: Diagnosis: Laceration without foreign body of left index finger without damage to nail Presentation: 04/05 11:24 Chief complaint: Left index finger laceration from cutting tree with hatchet. Bleeding hb controlled. Last tetanus was 7 yrs ago. Coronavirus screen: At this time, the client does not indicate any symptoms associated with coronavirus-19. Ebola Screen: No symptoms or risks identified at this time. Complicating Factors: There are no complicating factors for this patient. Initial Sepsis Screen: Does the patient meet any 2 criteria? No. Patient's initial sepsis screen is negative. Does the patient have a suspected source of infection? No. Patient's initial sepsis screen is negative. Risk Assessment: Do you want to hurt yourself or someone else? Patient reports no desire to harm self or others. Onset of symptoms was April 05, 2025. 11:24 Method Of Arrival: Ambulatory hb 11:24 Acuity: SALTY 4 hb Triage Assessment: 14:50 General: Appears in no apparent distress. Behavior is calm, cooperative. iw Historical: - Allergies: 11:26 Zithromax; hb - Home Meds: 11:26 None [Active]; hb - PMHx: 11:26 None; hb - PSHx: 11:26 None; hb - Immunization history:: Adult Immunizations not up to date. - Infectious Disease History:: Denies. - Social history:: Smoking status: unknown. Screenin:08 [facility] ED Fall Risk Assessment (Adult) History of falling in the last 3 months, iw including since admission No falls in past 3 months (0 pts) Confusion or Disorientation No (0 pts) Intoxicated or Sedated No (0 pts) Impaired Gait No (0 pts) Mobility Assist Device Used No (0 pt) Altered Elimination No (0 pt) Score/Fall Risk Level 0 - 2 = Low Risk Oriented to surroundings, Maintained a safe environment. Abuse screen: Denies threats or abuse. Denies injuries from another. Nutritional screening: No deficits noted. Tuberculosis screening: No symptoms or risk factors identified. Assessment: 13:06 Reassessment: Patient and/or family updated on plan of care and expected duration. Pain hb level reassessed. 14:50 General: Appears in no apparent distress. Behavior is calm, cooperative. Pain: iw Complains of pain in dorsal aspect of proximal phalanx of left index finger. Neuro: Level of Consciousness is awake, alert, obeys commands, Oriented to person, place, time, situation, Moves all extremities. Full function. Respiratory: Respiratory effort is even, unlabored, Respiratory pattern is regular, symmetrical. Musculoskeletal: Range of motion: intact in all extremities. Injury Description: Laceration sustained to dorsal aspect of proximal phalanx of left index finger is 0.5 to 2.5 cm long, was sustained 30-60 minutes ago. is bleeding a small amount. 15:20 Reassessment: Patient appears in no apparent distress at this time. pt reports one of iw the sutures has come loose, Angela notified. Vital Signs: 11:24 BP 139 / 69; Pulse 63; Resp 16; Temp 97.5; Pulse Ox 100% on R/A; Weight 81.65 kg; hb Height 6 ft. 0 in. ; Pain 4/10; 11:24 Body Mass Index 24.41 (81.65 kg, 182.88 cm) hb 11:24 Pain Scale: Adult hb ED Course: 11:17 Patient arrived in ED. al6 11:21 Catina Fernandez PA-C is PHCP. sb4 11:22 Nazia Hogue MD is Attending Physician. sb4 11:26 Triage completed. hb 13:06 Arm band placed on Patient placed in an exam room, on a stretcher. hb 13:10 Jammie Jules, RN is Primary Nurse. iw 14:50 Assist provider with laceration repair. Patient did not have IV access during this iw emergency room visit. Administered Medications: 14:00 Drug: Boostrix Tdap IM 0.5 ml IM once; as a single dose Route: IM; Site: right deltoid; iw 14:30 Follow up: Response: (VIS) Vaccine information sheet provided today. Questions and/or iw concerns addressed. VIS edition date: Mar 30, 2021.; No adverse reaction 14:51 Drug: Lidocaine Infiltration (1 %) 5 ml 5 ml Infiltration once; to bedside Volume: 5 sb4 ml; Route: Infiltration; Medication: 14:50 Vaccine Information Statement (VIS) provided today. Questions and/or concerns iw addressed. VIS edition date: March 2021. Outcome: 14:42 Discharge ordered by MD. moe 16:08 Discharged to home ambulatory, with family, iw 16:08 Condition: good 16:08 Discharge instructions given to patient, Instructed on discharge instructions, follow up and referral plans. wound care, Demonstrated understanding of instructions, follow-up care, wound care, 16:09 Patient left the ED. iw Signatures: Jammie Jules RN RN iw Sarahi Hinkle RN RN hb Brown, Sophia, PA-C PA-C sb4 Keely Hansen Corrections: (The following items were deleted from the chart) 11:29 11:24 Chief complaint: Left index finger laceration from cutting tree with hatchet. hb Bleeding controlled. hb
--- NOTE | 2025-04-05 14:43 | EDPHYS ---
Physician Documentation [facility] Name: Dre Obregon Age: 24 yrs Sex: Male : 2000 Arrival Date: 04/05/2025 Time: 11:15 Bed 10 Private MD: ED Physician Nazia Hogue HPI: 04/05 14:11 This 24 yrs old Male presents to ER via Ambulatory with complaints of Laceration To sb4 Hand. 14:11 The patient has a laceration The injury was accidental. sb4 14:57 Accidentally lacerated the base of his left index finger while using a hatchet to cut sb4 branches. Has full range of motion and sensation, just complains of pain in the area. Tetanus shot was 7 years ago. Historical: - Allergies: 11:26 Zithromax; hb - Home Meds: 11:26 None [Active]; hb - PMHx: 11:26 None; hb - PSHx: 11:26 None; hb - Immunization history:: Adult Immunizations not up to date. - Infectious Disease History:: Denies. - Social history:: Smoking status: unknown. ROS: 14:57 Constitutional: Negative for fever, chills, and weight loss, sb4 14:57 Skin: Positive for laceration(s), of the dorsal aspect of proximal phalanx of left index finger, 14:57 All other systems are negative, Exam: 14:57 Constitutional: This is a well developed, well nourished patient who is awake, alert, sb4 and in no acute distress. Head/Face: Normocephalic, atraumatic. Eyes: Extra-ocular motions intact. Periorbital areas with no swelling, redness, or edema. ENT: Mucous membranes moist. Respiratory: No increased work of breathing, no retractions or nasal flaring. 14:57 Skin: injury, laceration(s), the wound is approximately 8 cm(s), with a depth of .5 cm(s), of the dorsal aspect of proximal phalanx of left index finger, that can be described as no foreign body, irregular, with moderate bleeding, Vital Signs: 11:24 BP 139 / 69; Pulse 63; Resp 16; Temp 97.5; Pulse Ox 100% on R/A; Weight 81.65 kg; hb Height 6 ft. 0 in. ; Pain 12/02; 11:24 Body Mass Index 24.41 (81.65 kg, 182.88 cm) hb 11:24 Pain Scale: Adult hb Laceration: 14:57 Wound Repair of 8cm ( 3.1in ) subcutaneous laceration to dorsal aspect of proximal sb4 phalanx of left index finger. Irregularly shaped.. Distal neuro/vascular/tendon intact. Anesthesia: Local anesthetic administered with 8 mls of 1% lidocaine. Wound prep: Extensive cleansing with betadine by me, Wound irrigation with saline by me, Wound explored moderately, Copious irrigation. Skin closed with 8 4-0 Prolene using simple sutures and sterile technique. Dressed with non-adherent dressing. Patient tolerated well. MDM: 11:23 Medical Screening Exam initiated sb4 14:57 Differential diagnosis: superficial laceration. Data reviewed: vital signs, nurses sb4 notes, and as a result, I will discharge patient. Test considered but Not performed: X-ray: Not indicated, clinically there is no fracture. Counseling: I had a detailed discussion with the patient and/or guardian regarding the historical points, exam findings, and any diagnostic results supporting the discharge/admit diagnosis, the need for outpatient follow up, For suture removal in 7 days, to return to the emergency department if symptoms worsen or persist or if there are any questions or concerns that arise at home. 04/05 13:11 Order name: Wound Care; Complete Time: 10:55 sb4 04/05 14:51 Order name: Wound dressing; Complete Time: 10:55 sb4 Administered Medications: 14:00 Drug: Boostrix Tdap IM 0.5 ml IM once; as a single dose Route: IM; Site: right deltoid; iw 14:30 Follow up: Response: (VIS) Vaccine information sheet provided today. Questions and/or iw concerns addressed. VIS edition date: Mar 30, 2021.; No adverse reaction 14:51 Drug: Lidocaine Infiltration (1 %) 5 ml 5 ml Infiltration once; to bedside Volume: 5 sb4 ml; Route: Infiltration; Disposition Summary: 04/05/25 14:42 Discharge Ordered Notes: Location: Home sb4 Problem: new sb4 Symptoms: have improved sb4 Condition: Stable sb4 Diagnosis - Laceration without foreign body of left index finger without damage to nail sb4 Followup: sb4 - With: Emergency Department - When: 1 week - Reason: Staple/Suture removal Discharge Instructions: - Discharge Summary Sheet sb4 - Laceration Care, Adult, [id number] sb4 Forms: - Work release form sb4 - Patient Portal Instructions sb4 - Leadership Thank You Letter sb4 Signatures: Jammie Jules RN Sarahi Jacinto RN RN hb Brown, Sophia, SHAI GIBBONS sb4
== END 2025-04-05 16:09 | disposition home or self-care (01) ==
LOC: ER 11:15
DX: S61.211A Laceration without foreign body of left index finger without damage to nail, initial encounter (principal); W45.8XXA Other foreign body or object entering through skin, initial encounter
CPT/HCPCS: 12044; 90715; 96372; 99284; J2003

== ENCOUNTER 2025-04-11 10:48 | Emergency (ER) | payer SELFPAY ==
--- OUTSIDE RECORDS SUMMARY | 2025-04-11 10:51 | XMS REPORT | Continuity of Care Document ---
Author Name Unknown Address [address] [facility] [address] [id number] [facility] Address [address] [facility] [place] [address] Care Team Providers Care Motor Vehicle Compliance Analyst Name Role Phone Unavailable Unavailable Unavailable Encounters Start Date/Time End Date/Time Encounter Type Admission Type Attending Clinicians Care Facility Care Department Encounter ID Source 2024-12-04 14:01:23 2024-12-04 14:01:23 Outpatient [facility] [id number] Trace Rodriguez 2024-11-03 08:16:07 2024-11-03 08:16:07 Outpatient [facility] [id number] Trace Rodriguez
--- NOTE | 2025-04-11 11:05 | ER ---
Nurse's Notes [facility] Name: Dre Obregon Age: 24 yrs Sex: Male : 2000 Arrival Date: 04/11/2025 Time: 10:48 Bed IW1 Private MD: Diagnosis: Laceration without foreign body of left index finger without damage to nail;Left index finger cellulitis Presentation: 04/11 10:59 Chief complaint: Patient states: stitches placed to left index finger , now it's red iw and swollen, draining. Coronavirus screen: At this time, the client does not indicate any symptoms associated with coronavirus-19. Ebola Screen: No symptoms or risks identified at this time. Risk Assessment: Do you want to hurt yourself or someone else? Patient reports no desire to harm self or others. 10:59 Method Of Arrival: Ambulatory iw 10:59 Acuity: SALTY 4 iw 11:00 Initial Sepsis Screen: Does the patient meet any 2 criteria? No. Patient's initial iw sepsis screen is negative. Does the patient have a suspected source of infection? No. Patient's initial sepsis screen is negative. Onset of symptoms. Triage Assessment: 11:00 General: Appears in no apparent distress. Behavior is calm, cooperative. Pain:. iw Historical: - Allergies: 11:01 Zithromax; iw Screenin:30 [facility] ED Fall Risk Assessment (Adult) History of falling in the last 3 months, iw including since admission No falls in past 3 months (0 pts) Confusion or Disorientation No (0 pts) Intoxicated or Sedated No (0 pts) Impaired Gait No (0 pts) Mobility Assist Device Used No (0 pt) Altered Elimination No (0 pt) Score/Fall Risk Level 0 - 2 = Low Risk Oriented to surroundings, Maintained a safe environment. Abuse screen: Denies threats or abuse. Denies injuries from another. Nutritional screening: No deficits noted. Tuberculosis screening: No symptoms or risk factors identified. Vital Signs: 11:01 BP 143 / 94; Pulse 68; Resp 16; Temp 98.1; Pulse Ox 100% on R/A; Weight 81.65 kg; iw Height 6 ft. 0 in. ; 11:01 Body Mass Index 24.41 (81.65 kg, 182.88 cm) iw ED Course: 10:51 Patient arrived in ED. mr 10:52 Smith, Thomas, DO is Attending Physician. ms3 11:00 Triage completed. iw 11:02 Jammie Jules, RN is Primary Nurse. iw 11:04 Tolu Parr MD is Referral Physician. ms3 Administered Medications: 11:35 Drug: Doxycycline PO 100 mg PO once Route: PO; iw 11:35 Follow up: Response: Medication Administered at Departure iw 11:36 Follow up: Response: Medication administered at discharge. iw Outcome: 11:04 Discharge ordered by . ms3 11:35 Patient left the ED. iw 11:35 Discharged to home via ambulance, iw 11:35 Condition: good 11:35 Discharge instructions given to patient, Instructed on discharge instructions, follow up and referral plans. medication usage, Demonstrated understanding of instructions, follow-up care, medications, Prescriptions given X 1, Signatures: Lisa Larsen, Reg Reg Jammie Jules, RN RN iw Thomas Smith DO DO ms3
--- NOTE | 2025-04-11 11:05 | EDPHYS ---
Physician Documentation [facility] Name: Dre Obregon Age: 24 yrs Sex: Male : 2000 Arrival Date: 04/11/2025 Time: 10:48 Bed IW1 Private MD: ED Physician Thomas Smith HPI: 04/11 11:04 This 24 yrs old Male presents to ER via Ambulatory with complaints of Infected wound. ms3 11:04 24-year-old male with no past medical history presents to the emergency department for ms3 infected wound on left index finger. Patient states he had stitches placed 3 days ago and is currently having swelling and warmth around the laceration. Patient states his discomfort is a 4/10. Patient is taken Tylenol ibuprofen for pain without relief.. Historical: - Allergies: 11: Zithromax; iw ROS: 11:04 Constitutional: Negative for fever, and chills. Cardiovascular: Negative for chest ms3 pain, and palpitations. Respiratory: Negative for shortness of breath, cough, wheezing, and pleuritic chest pain, Abdomen/GI: Negative for abdominal pain, nausea, vomiting, diarrhea, and constipation, 11:04 Skin: Positive for Erythema, swelling, tenderness around laceration, Exam: 11:04 Constitutional: This is a well developed, well nourished patient who is awake, alert, ms3 and in no acute distress. Cardiovascular: Regular rate and rhythm with a normal S1 and S2. No gallops, murmurs, or rubs. Normal PMI, no JVD. No pulse deficits. Respiratory: Lungs have equal breath sounds bilaterally, clear to auscultation and percussion. No rales, rhonchi or wheezes noted. No increased work of breathing, no retractions or nasal flaring. Abdomen/GI: Soft, non-tender, with normal bowel sounds. No distension or tympany. No guarding or rebound. No evidence of tenderness throughout. 11:04 Skin: Flap laceration with blue sutures in place with proximal discoloration of skin, surrounding erythema, tenderness to palpation.. Vital Signs: 11:01 BP 143 / 94; Pulse 68; Resp 16; Temp 98.1; Pulse Ox 100% on R/A; Weight 81.65 kg; iw Height 6 ft. 0 in. ; 11:01 Body Mass Index 24.41 (81.65 kg, 182.88 cm) iw MDM: 10:52 Medical Screening Exam initiated ms3 11:04 Differential diagnosis: Cellulitis versus wound dehiscence. Data reviewed: vital signs, ms3 nurses notes, and as a result, I will discharge patient. I considered the following discharge prescriptions or medication management in the emergency department Medications were administered in the Emergency Department. See MAR. Counseling: I had a detailed discussion with the patient and/or guardian regarding the historical points, exam findings, and any diagnostic results supporting the discharge/admit diagnosis, the need for outpatient follow up, to return to the emergency department if symptoms worsen or persist or if there are any questions or concerns that arise at home. Special discussion: I discussed with the patient/guardian in detail that at this point there is no indication for admission to the hospital. It is understood, however, that if the symptoms persist or worsen the patient needs to return immediately for re-evaluation. ED course: Discussed treatment plan of doxycycline with patient. Discussed physical exam findings. Patient to follow-up with primary care physician 2 to 3 days. Patient understands and agrees with plan. All questions were answered. Return precautions were discussed to include worsening symptoms, increased erythema, increased pain, drainage, or any other concerns.. Administered Medications: 11:35 Drug: Doxycycline PO 100 mg PO once Route: PO; iw 11:35 Follow up: Response: Medication Administered at Departure iw 11:36 Follow up: Response: Medication administered at discharge. iw Disposition Summary: 04/11/25 11:04 Discharge Ordered Notes: Location: Home ms3 Condition: Stable ms3 Diagnosis - Laceration without foreign body of left index finger without damage to nail ms3 - Left index finger cellulitis ms3 Followup: ms3 - With: Tolu Parr MD - When: 2 - 3 days - Reason: If symptoms return, Recheck today's complaints, N Discharge Instructions: - Discharge Summary Sheet ms3 - Cellulitis, Adult, [id number] ms3 - Laceration Care, Adult, [id number] ms3 Forms: - Medication Reconciliation Form ms3 - Antibiotic Education ms3 - Prescription Opioid Use ms3 - Patient Portal Instructions ms3 - Leadership Thank You Letter ms3 Prescriptions: - Doxycycline Hyclate 100 mg Oral Tablet - take 1 tablet ORAL route every 12 hours; 20 tablet; Refills: 0, Product ms3 Selection Permitted Signatures: Jammie Jules, RN RN iw Thomas Smith, DO ms3
[2025-04-11] MEDS ORDERED: DOXYCYCLINE 100 MG CAP PO ONE (11:16)
[2025-04-11 15:48] VITALS: BP 143/94; TEMP 98.1; O2SAT 100
== END 2025-04-11 11:35 | disposition home or self-care (01) ==
LOC: ER 10:48
DX: L03.012 Cellulitis of left finger (principal)
CPT/HCPCS: 99283

== ENCOUNTER 2025-04-21 14:31 | Emergency (ER) | payer SELFPAY ==
--- OUTSIDE RECORDS SUMMARY | 2025-04-21 14:37 | XMS REPORT | Continuity of Care Document ---
Author Name Unknown Address [address] [facility] [address] [id number] [facility] Address [address] [facility]. [address] [place] [address] Care Team Providers Care Border Patrol Officer Name Role Phone Unavailable Unavailable Unavailable Encounters Start Date/Time End Date/Time Encounter Type Admission Type Attending Clinicians Care Facility Care Department Encounter ID Source 2024-12-04 14:01:23 2024-12-04 14:01:23 Outpatient [facility] [id number] Trace Rodriguez 2024-11-03 08:16:07 2024-11-03 08:16:07 Outpatient [facility] [id number] Trace Rodriguez
[2025-04-21] MEDS ORDERED: IBUPROFEN 400 MG TAB ONE (15:26)
[2025-04-21] MEDS ORDERED: MUPIROCIN 2% OINT 22GM TUBE TOP ONE (15:58)
[2025-04-21] MEDS ORDERED: HYDROCODONE/APAP 5/325 MG TAB ONE (15:59)
--- NOTE | 2025-04-21 16:37 | ER ---
Nurse's Notes [facility] Name: Dre Obregon Age: 24 yrs Sex: Male : 2000 Arrival Date: 04/21/2025 Time: 14:31 Bed 23 Private MD: Diagnosis: Unspecified open wound of left index finger without damage to nail, subsequent encounter Presentation: 04/21 14:55 Chief complaint: Patient states: has stitches to left first finger and it became me1 infected. On doxycycline for about a week. Green, purulent drainage had stopped completely and started again yesterday, Reports foul odor to finger. Pain level 2/10. Denies fever. Patient has about 2 days left of the doxycycline. Coronavirus screen: At this time, the client does not indicate any symptoms associated with coronavirus-19. Ebola Screen: No symptoms or risks identified at this time. Initial Sepsis Screen: Does the patient meet any 2 criteria? No. Patient's initial sepsis screen is negative. Does the patient have a suspected source of infection? No. Patient's initial sepsis screen is negative. Risk Assessment: Do you want to hurt yourself or someone else? Patient reports no desire to harm self or others. Onset of symptoms is unknown. 14:55 Method Of Arrival: Ambulatory [facility] 14:55 Acuity: SALTY 4 me1 Historical: - Allergies: 14:58 Zithromax; me1 - PMHx: 14:58 IBS; me1 - PSHx: 14:58 None; me1 - Immunization history:: Adult Immunizations up to date. - Infectious Disease History:: Denies. - Social history:: Smoking status: Reported history of juuling and/or vaping. Screenin:55 [facility] ED Fall Risk Assessment (Adult) History of falling in the last 3 months, jb4 including since admission No falls in past 3 months (0 pts) Confusion or Disorientation No (0 pts) Intoxicated or Sedated No (0 pts) Impaired Gait No (0 pts) Mobility Assist Device Used No (0 pt) Altered Elimination No (0 pt) Score/Fall Risk Level 0 - 2 = Low Risk Oriented to surroundings, Maintained a safe environment. Abuse screen: Denies threats or abuse. Nutritional screening: No deficits noted. Tuberculosis screening: No symptoms or risk factors identified. Assessment: 16:00 General: Appears in no apparent distress. comfortable, Behavior is calm, cooperative, jb4 appropriate for age. Pain: Complains of pain in dorsal aspect of proximal phalanx of left index finger Pain does not radiate. Pain currently is 2 out of 10 on a pain scale. Neuro: Level of Consciousness is awake, alert, obeys commands, Oriented to person, place, time, situation. Cardiovascular: Patient's skin is warm and dry. Respiratory: Airway is patent Respiratory effort is even, unlabored, Respiratory pattern is regular, symmetrical. Derm: Skin is pink, warm \T\ dry. healing laceration to the left first finger. Musculoskeletal: Circulation, motion, and sensation intact. Range of motion: intact in all extremities. 16:55 Reassessment: Patient appears in no apparent distress at this time. Patient and/or jb4 family updated on plan of care and expected duration. Pain level reassessed. Patient is alert, oriented x 3, equal unlabored respirations, skin warm/dry/pink. Vital Signs: 14:55 BP 120 / 74; Pulse 78; Resp 16; Temp 98.2; Pulse Ox 98% ; Weight 81.65 kg; Height 6 ft. me1 0 in. ; Pain 2/10; 14:55 Body Mass Index 24.41 (81.65 kg, 182.88 cm) me1 14:55 Pain Scale: Adult me1 ED Course: 14:34 Patient arrived in ED. cj3 14:[address] [facility] cp 14:35 Alexandre Santamaria MD is Attending Physician. cp 14:58 Triage completed. me1 14:58 Arm band placed on Patient placed in an exam room. me1 15:58 XRAY Finger-Thumb Left: left index finger In Process Unspecified. EDMS 16:12 Cory Rushing, RN is Primary Nurse. jb4 16:55 Patient has correct armband on for positive identification. Bed in low position. Call jb4 light in reach. Side rails up X 1. Provided Education on: discharge instructions.. 16:57 No provider procedures requiring assistance completed. Patient did not have IV access jb4 during this emergency room visit. Administered Medications: 15:34 Drug: Ibuprofen PO 800 mg PO once Route: PO; jb4 16:20 Follow up: Response: No adverse reaction; Marked relief of symptoms; Pain is decreased jb4 16:12 Drug: Mupirocin Topical Ointment 2 % 1 application Topical once Route: Topical; Site: jb4 wound; 16:14 Drug: HYDROcodone-acetaminophen PO 5 mg-325 mg 1 tabs PO once Route: PO; jb4 Medication: 16:55 VIS not applicable for this client. jb4 Outcome: 16:37 Discharge ordered by . dimas 16:55 Discharged to home ambulatory, jb4 16:55 Condition: stable 16:55 Discharge instructions given to patient, Instructed on discharge instructions, follow up and referral plans. medication usage, Demonstrated understanding of instructions, follow-up care, medications, Prescriptions given X 3, 16:57 Patient left the ED. jb4 Signatures: Dispatcher [employer] EDMS Alexandre Way PA-C PA-C cp Bryson, James, RN RN jb4 Andree Flynn RN RN me1 Ana Antonio cj3 Corrections: (The following items were deleted from the chart) 16:56 16:00 Derm: Skin is intact, Skin is pink, warm \T\ dry. jb4 jb4
--- NOTE | 2025-04-21 16:37 | EDPHYS ---
Physician Documentation [facility] Name: Dre Obregon Age: 24 yrs Sex: Male : 2000 Arrival Date: 04/21/2025 Time: 14:31 Bed 23 Private MD: ED Physician Alexandre Santamaria HPI: 04/21 15:00 This 24 yrs old Male presents to ER via Ambulatory with complaints of Finger Infection. cp 15:00 The patient or guardian reports Reevaluation of repaired laceration of left index cp finger. Sutures were placed 04/05/2025 after laceration caused by hatchet. Patient currently taking prescribed Doxycycline but reports noticing purulent and foul smelling drainage from wound. Historical: - Allergies: 14:58 Zithromax; me1 - PMHx: 14:58 IBS; me1 - PSHx: 14:58 None; me1 - Immunization history:: Adult Immunizations up to date. - Infectious Disease History:: Denies. - Social history:: Smoking status: Reported history of juuling and/or vaping. ROS: 15:05 Constitutional: history per hpi cp Exam: 15:10 Constitutional: The patient appears in no acute distress, alert, awake, non-toxic, well cp developed, well nourished, 15:10 Head/Face: Normocephalic, atraumatic. cp 15:10 Eyes: Periorbital structures: appear normal, Conjunctiva: normal, no exudate, no injection, Lids and lashes: appear normal, bilaterally, 15:10 ENT: External ear(s): are unremarkable, Nose: is normal, Mouth: Lips: moist, Oral mucosa: moist, Posterior pharynx: Airway: no evidence of obstruction, patent, 15:10 Chest/axilla: Inspection: normal, 15:10 Cardiovascular: Rate: normal, 15:10 Respiratory: the patient does not display signs of respiratory distress, Respirations: normal, no use of accessory muscles, no retractions, labored breathing, is not present, Breath sounds: are clear throughout, no decreased breath sounds, 15:10 Abdomen/GI: Inspection: abdomen appears normal, 15:10 Musculoskeletal/extremity: Extremities: noted in the dorsal radial side middle phalanx: cp repaired laceration appears with dehiscence of wound edges, mild erythema, mild swelling, no drainage expressed, Vital Signs: 14:55 BP 120 / 74; Pulse 78; Resp 16; Temp 98.2; Pulse Ox 98% ; Weight 81.65 kg; Height 6 ft. me1 0 in. ; Pain 2/10; 14:55 Body Mass Index 24.41 (81.65 kg, 182.88 cm) me1 14:55 Pain Scale: Adult me1 Procedures: 15:55 Suture/Staple removal: Removed 6 sutures, from left index finger, site appears moderate cp dehiscence, mild erythema, mild swelling, dressed with Bactroban ointment. Patient tolerated well. MDM: 14:57 Medical Screening Exam initiated 15:45 Differential diagnosis: fracture, cellulitis, abscess. 15:56 Independent interpretation of the following test(s) in the Emergency Department X-Ray: cp My interpretation is images of left index finger negative for fracture. 16:36 Data reviewed: vital signs, nurses notes, radiologic studies, plain films, and as a result, I will discharge patient. 16:36 I considered the following discharge prescriptions or medication management in the emergency department Medications were administered in the Emergency Department. See MAR. Counseling: I had a detailed discussion with the patient and/or guardian regarding the historical points, exam findings, and any diagnostic results supporting the discharge/admit diagnosis, radiology results, to return to the emergency department if symptoms worsen or persist or if there are any questions or concerns that arise at home. Response to treatment: the patient's symptoms have mildly improved after treatment, and as a result, I will discharge patient. 04/21 14:53 Order name: XRAY Finger-Thumb Left: left index finger 04/21 15:14 Order name: Suture Removal; Complete Time: 16:20 cp 04/21 15:51 Order name: Wound dressing: please clean and irrigate wound, dress with bactroban and cp guaze; Complete Time: 16:20 Administered Medications: 15:34 Drug: Ibuprofen PO 800 mg PO once Route: PO; jb4 16:20 Follow up: Response: No adverse reaction; Marked relief of symptoms; Pain is decreased jb4 16:12 Drug: Mupirocin Topical Ointment 2 % 1 application Topical once Route: Topical; Site: jb4 wound; 16:14 Drug: HYDROcodone-acetaminophen PO 5 mg-325 mg 1 tabs PO once Route: PO; jb4 Disposition: 04/22 13:39 Co-signature as Attending Physician, Alexandre Santamaria MD I agree with the assessment and [facility] plan of care. Disposition Summary: 04/21/25 16:37 Discharge Ordered Notes: Location: Home cp Problem: an ongoing problem cp Symptoms: have improved cp Condition: Stable cp Diagnosis - Unspecified open wound of left index finger without damage to nail, subsequent cp encounter Followup: cp - With: Emergency Department - When: As needed - Reason: Worsening of condition Discharge Instructions: - Discharge Summary Sheet cp - How to Change Your Wound Dressing cp - Wound Care, Adult cp - Form - Return To Work cp Forms: - Medication Reconciliation Form cp - Antibiotic Education cp - Prescription Opioid Use cp - Patient Portal Instructions cp - Leadership Thank You Letter cp - Work release form jb4 - Family Work Release jb4 Prescriptions: - mupirocin 2 % Topical ointment - apply 1 application TOPICAL route 2-3 times daily; 30 gram tube; Refills: 0, cp Product Selection Permitted - Ibuprofen 800 mg Oral Tablet - take 1 tablet ORAL route every 8 hours As needed take with food; 30 tablet; cp Refills: 0, Product Selection Permitted - Bactrim DS 800-160 mg Oral Tablet - take 1 tablet ORAL route every 12 hours for 10 days; 20 tablet; Refills: 0, cp Product Selection Permitted Signatures: Dispatcher [employer] Alexandre Wesley MD MD cha Page, Corey, PA-C PA-C cp Cory Rushing, RN RN jb4 Andree Flynn RN RN me1
--- NOTE | 2025-04-21 16:41 | RAD REPORT ---
EXAM: XR Finger-Thumb Left HISTORY: [facility] MAIN PAIN Bed: COMPARISON: None TECHNIQUE: 3 radiographic views of the left fingers submitted. FINDINGS: No evidence of acute fracture or dislocation. Joint alignment is maintained. Soft tissue s welling at the base of the second finger with soft tissue defect along the lateral side. No soft tissue gas otherwise. No joint erosions or evidence of early osteoarthritis. IMPRESSION: No significant bone or joint abnormality. Soft tissue abnormalities as above.
[2025-04-21 23:01] VITALS: BP 120/74; TEMP 98.2; O2SAT 98
== END 2025-04-21 16:57 | disposition home or self-care (01) ==
LOC: ER 14:31
DX: S61.211D Laceration without foreign body of left index finger without damage to nail, subsequent encounter (principal)
CPT/HCPCS: 99283